=== PATIENT | female | born 1955 | race Caucasian/White ===

== ENCOUNTER 2017-06-27 10:35 | Emergency (ER) | payer SELFPAY ==
[~2017-06-27] VITALS: Ht 160 cm; Wt 82.0 kg
[~2017-06-27 10:35] MED LIST: 1-ME1LIQ PO; ALPR0.25 PO; AMLO10 PO; ATOR80TA41 PO; CARV12.5 PO; CLOP75 PO; ECOT81TA2 PO; LISI-363 PO; LISI20 PO; METH750T2 PO
[2017-06-27 10:37] VITALS: BP 179/93; PULSE 84; RESP 20; TEMP 97.8; O2SAT 98
[2017-06-27] MEDS ORDERED: FLUT1SPR5 EACH NARE (10:53)
[2017-06-27] MEDS ORDERED: AUGM875T3 PO (10:53)
--- NOTE | 2017-06-27 10:57 | PD ---
HPI Chief Complaint: ENT Complaint Time Seen by Provider: 10:53 Travel History International Travel<30 days: No Contact w/Intl Traveler<30days: No Traveled to known affect area: No History of Present Illness HPI This is a 61-year-old female who presents for evaluation of nasal congestion and sinus pressure. Symptoms started 1.5 weeks ago. She reports that she had some pressure and pain in her right ear yesterday as well but that has resolved. She has tried using [id number] cough and cold medications, nasal decongestants however her symptoms have persisted which prompted evaluation. Denies cough, shortness of breath, rash, recent travel, fevers or chills. She has no other complaints at this time. PFSH Past Medical History Hx Anticoagulant Therapy: Yes Arthritis: Yes (OSTEOMYLITIS) Blood Disorders: No Heart Rhythm Problems: No Cancer: No Cardiovascular Problems: No High Cholesterol: Yes Chest Pain: No Congestive Heart Failure: No Diabetes: No Diminished Hearing: No Endocrine: No Genitourinary: No Hypertension: Yes Immune Disorder: No Musculoskeletal: Yes (OSTEOMYELITIS A CHILD) Neurologic: No Psychiatric: No Respiratory: No Thyroid Disease: No ?: Not Menopausal: Yes Dilation and Curettage (D&C): Yes Past Surgical History Section: Yes (X 2) Gynecologic Surgery: Yes (C SECTION) Tonsillectomy: Yes (& ADENOIDS) Social History Alcohol Use: No Tobacco Use: No Substance Use: No Allergies-Medications (Allergen,Severity, Reaction): Coded Allergies: Sulfa (Sulfonamide Antibiotics) (Unverified Allergy, Severe, HIVES, ) levofloxacin (Unverified Allergy, Severe, ITCHING/RASH, 06/07/17) Reported Meds & Prescriptions Reported Meds & Active Scripts Active Flonase Nasal [place] (Fluticasone Nasal [place]) 50 Mcg/Act [place] 100 Mcg EACH NARE BID 10 Days Augmentin (Amoxicillin-Clavulanate) 875-125 Mg Tab 1 Tab PO BID 10 Days Plavix (Clopidogrel Bisulfate) 75 Mg Tab 75 Mg PO DAILY Lisinopril 20 mg (Lisinopril) 20 Mg Tab 2 Tab PO DAILY 1-Methyl 2-Pyrrolidinone (1-Methyl 2-Pyrrolidone (Bulk)) 10 Mg Tab 1 Tab PO DAILY Methocarbamol 750 Mg Tab 750 Mg PO QID Alprazolam 0.25 Mg Tab 0.25 Mg PO TID Ecotrin Low Strength (Aspirin) 81 Mg Tabec 81 Mg PO DAILY Norvasc (Amlodipine Besylate) 10 Mg Tab 10 Mg PO HS Prinivil 20 mg (Lisinopril) 20 Mg Tab 40 Mg PO DAILY Lipitor 80 Mg Tab (Atorvastatin) 80 Mg Tab 80 Mg PO HS Plavix (Clopidogrel Bisulfate) 75 Mg Tab 75 Mg PO DAILY Reported Coreg 12.5 mg (Carvedilol) 12.5 Mg Tab 1 Tab PO BID Review of Systems Except as stated in HPI: all other systems reviewed are Neg Physical Exam Narrative GENERAL: Well-developed well-nourished female in no acute distress SKIN: Warm and dry. HEAD: Atraumatic. Normocephalic. EYES: Pupils equal and round. No scleral icterus. No injection or drainage. ENT: No nasal bleeding or discharge. Mucous membranes pink and moist. No oral pharyngeal erythema or exudate. Tympanic membranes appear normal. NECK: Trachea midline. No JVD. No lymphadenopathy. CARDIOVASCULAR: Regular rate and rhythm. No murmur appreciated. RESPIRATORY: No accessory muscle use. Clear to auscultation. Breath sounds equal bilaterally. Data Data Last Documented VS Vital Signs Date Time Temp Pulse Resp B/P (MAP) Pulse Ox O2 Delivery O2 Flow Rate FiO2 06/27/17 10:37 97.8 84 20 179/93 (121) 98 Room Air [facility] Medical Decision Making Medical Screen Exam Complete: Yes Emergency Medical Condition: Yes Medical Record Reviewed: Yes Differential Diagnosis Sinusitis, rhinitis, pharyngitis, otitis media, bronchitis Narrative Course Physical examination and history are consistent with sinusitis. The patient is being discharged with Augmentin and Flonase. Diagnosis Primary Impression: Sinusitis Qualified Codes: J01.90 - Acute sinusitis, unspecified Departure Forms: Tests/Procedures, Work Release Enter return to work date: Jun 27, 2017 Additional Instructions: Medication as prescribed. Follow-up with primary care physician as needed. Return for any emergent medical conditions. Med/Other Pt SpecificInfo: Prescription(s) given Scripts Fluticasone Nasal [place] (Flonase Nasal [place]) 50 Mcg/Act [place] 100 MCG EACH NARE BID for Allergies for 10 Days, #1 BOTTLE 0 Refills Prov: Cindi Mata MD 06/27/17 Amoxicillin-Clavulanate (Augmentin) 875-125 Mg Tab 1 TAB PO BID for Infection for 10 Days, TAB 0 Refills Prov: Cindi Mata MD 06/27/17 Disposition: 01 DISCHARGE HOME Condition: Stable Moses Segal Jun 27, 2017 10:57
== END 2017-06-27 11:26 | disposition home or self-care (01) ==
LOC: NEPK 10:35
DX: J01.90 Acute sinusitis, unspecified (principal)
CPT/HCPCS: 99283

== ENCOUNTER 2017-10-20 09:30 | Emergency (ER) | payer SELFPAY ==
[~2017-10-20] VITALS: Ht 160 cm; Wt 76.0 kg
[~2017-10-20 09:30] MED LIST changes: +AUGM875T3 PO; +FLUT1SPR5 EACH NARE
[2017-10-20 09:32] VITALS: BP 167/84; PULSE 72; RESP 14; TEMP 97.9; O2SAT 97
--- NOTE | 2017-10-20 10:05 | PD ---
HPI Chief Complaint: ENT Complaint Time Seen by Provider: 09:44 Travel History International Travel<30 days: No Contact w/Intl Traveler<30days: No Traveled to known affect area: No History of Present Illness HPI 61 year old female presents to the emergency department for evaluation of sinus pressure, nasal congestion and sore throat x 2 weeks. Patient denies any fevers or chills. Patient states she the nasal congestion has been thick yellow phlegm. She states it feels like the nasal congestion is dripping down the posterior aspect of her throat irritating her throat. She has been using OTC multi-symptom cold medicine, but the symptoms are persistent. She states she had this a couple months ago and an antibiotic is the only thing that brought relief. Patient also states she recently started a new job and will be insured started the [employer] of the year. She is requesting her Lisinopril medication refill and is going to follow up with her new PCP next month. She denies any smoking, alcohol or drug use. PFSH Past Medical History Hx Anticoagulant Therapy: Yes Arthritis: Yes Blood Disorders: No Heart Rhythm Problems: No Cancer: No Cardiovascular Problems: No High Cholesterol: Yes Chest Pain: No Congestive Heart Failure: No Diabetes: No Diminished Hearing: No Endocrine: No Genitourinary: No Hypertension: Yes Immune Disorder: No Musculoskeletal: Yes (OSTEOMYELITIS A CHILD) Neurologic: No Psychiatric: No Respiratory: No Thyroid Disease: No Menopausal: Yes Dilation and Curettage (D&C): Yes Past Surgical History Section: Yes (X 2) Gynecologic Surgery: Yes (C SECTION) Tonsillectomy: Yes (& ADENOIDS) Social History Alcohol Use: No Tobacco Use: No Substance Use: No Allergies-Medications (Allergen,Severity, Reaction): Coded Allergies: Sulfa (Sulfonamide Antibiotics) (Unverified Allergy, Severe, HIVES, ) levofloxacin (Unverified Allergy, Severe, ITCHING/RASH, 06/07/17) Reported Meds & Prescriptions Reported Meds & Active Scripts Active Lisinopril 40 Mg Tab 40 Mg PO DAILY Augmentin (Amoxicillin-Clavulanate) 875-125 Mg Tab 1 Tab PO BID 10 Days Review of Systems Except as stated in HPI: all other systems reviewed are Neg Physical Exam Narrative GENERAL: Well-nourished, well-developed 61-year-old female patient in no acute distress. Nontoxic appearing. SKIN: Focused skin assessment warm/dry. HEAD: Normocephalic. Atraumatic. EYES: No scleral icterus. No injection or drainage. ENT: Mucosa pink and moist. No erythema or exudates. No uvular edema. No uvular , palatal, or tonsillar deviation. Oral pharyngeal airway patent. Nasal turbinates appear hypertrophic with small amount of purulent drainage noted. THROAT: No pharyngeal injection, exudates, or tonsillar hypertrophy. Airway is patent. NECK: Supple, trachea midline. No JVD or lymphadenopathy. CARDIOVASCULAR: Regular rate and rhythm without murmurs, gallops, or rubs. RESPIRATORY: Breath sounds equal bilaterally. Clear to auscultation. No accessory muscle use. No wheezing, rhonchi or crackles noted. GASTROINTESTINAL: Abdomen soft, non-tender, nondistended. Data Data Last Documented VS Vital Signs Date Time Temp Pulse Resp B/P (MAP) Pulse Ox O2 Delivery O2 Flow Rate FiO2 10/20/17 09:32 97.9 72 14 167/84 (111) 97 Orders Orders Ed Discharge Order (10/20/17 10:24) [facility] Medical Decision Making Medical Screen Exam Complete: Yes Emergency Medical Condition: Yes Differential Diagnosis Differential diagnoses include but are not limited to sinusitis, pharyngitis, viral URI Narrative Course Patient's physical exam is consistent with sinusitis. Due to the length of time her symptoms have been persistent she'll be treated with Augmentin. Patient requests lisinopril refill due at this time to the fact that she has insurance at the beginning of the year and will follow up with a primary care at that time. Lisinopril refill given. Patient will follow up primary care next month. Patient discharged home at this time. Diagnosis Primary Impression: Sinusitis Qualified Codes: J32.9 - Chronic sinusitis, unspecified Referrals: Primary Care Physician Patient Instructions: General Instructions, Sinusitis (ED) Additional Instructions: Please return to emergency department if your symptoms return or worsen. Follow up with your primary care provider. Take medications as prescribed. Med/Other Pt SpecificInfo: Prescription(s) given Scripts Lisinopril (Lisinopril) 40 Mg Tab 40 MG PO DAILY for Blood Pressure Management, #30 TAB 0 Refills Prov: Vanessa Islas 10/20/17 Amoxicillin-Clavulanate (Augmentin) 875-125 Mg Tab 1 TAB PO BID for Infection for 10 Days, #20 TAB 0 Refills Prov: Vanessa Islas 10/20/17 Disposition: 01 DISCHARGE HOME Condition: Stable Vanessa Islas Oct 20, 2017 10:05
[2017-10-20] MEDS ORDERED: AUGM875T3 PO (10:17)
[2017-10-20] MEDS ORDERED: LISI40TA PO (10:17)
== END 2017-10-20 19:36 | disposition home or self-care (01) ==
LOC: NEPD 09:30
DX: J32.9 Chronic sinusitis, unspecified (principal); I10 Essential (primary) hypertension
CPT/HCPCS: 99284

== ENCOUNTER 2017-11-11 23:23 | Emergency (ER) | payer SELFPAY ==
[~2017-11-11 23:23] MED LIST changes: -1-ME1LIQ PO; -ALPR0.25 PO; -AMLO10 PO; -ATOR80TA41 PO; -CARV12.5 PO; -CLOP75 PO; -ECOT81TA2 PO; -FLUT1SPR5 EACH NARE; -LISI-363 PO; -LISI20 PO; +LISI40TA PO; -METH750T2 PO
[2017-11-11 23:33] VITALS: BP_SYST 10; BP_SYST 154; BP_DIAS 88; PULSE 87; RESP 16; TEMP 97.6; O2SAT 97
[2017-11-11] MEDS ORDERED: SODIUM CHLORIDE 0.9% FLUSH 10 ML FLUSH IV FLUSH PRN (23:45)
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
[2017-11-12] MEDS ORDERED: SODIUM CHLOR 0.9% 1000 ML INJ 1,000 ML IV ONE (00:45)
[2017-11-12 00:46] LABS: AUTOMATED NEUTROPHIL # 2.5 TH/MM3 (1.8-7.7); BASOPHIL # 0.1 TH/MM3 (0-0.2); BASOPHIL % 1.3 % (0.0-2.0); EOSINOPHIL # 0.2 TH/MM3 (0-0.4); EOSINOPHIL % 3.9 % (0.0-4.0); HEMATOCRIT 42.8 % (35.0-46.0); HEMOGLOBIN 14.1 GM/DL (11.6-15.3); LYMPH % 41.2 % (9.0-44.0); LYMPHOCYTE # 2.2 TH/MM3 (1.0-4.8); MEAN CELL VOLUME 92.8 FL (80.0-100.0); MEAN CORPUSCULAR HEMOGLOBIN 30.6 PG (27.0-34.0); MEAN PLATELET VOLUME 8.1 FL (7.0-11.0); MONO % 6.3 % (0.0-8.0); MONOCYTE # 0.3 TH/MM3 (0-0.9); NEUT % 47.3 % (16.0-70.0); PLATELET COUNT 265 TH/MM3 (150-450); RED BLOOD COUNT 4.61 MIL/MM3 (4.00-5.30); RED CELL DISTRIBUTION WIDTH 13.2 % (11.6-17.2); WHITE BLOOD COUNT 5.4 TH/MM3 (4.0-11.0)
[2017-11-12 01:00] LABS: ALT (GPT) 33 U/L (10-53); PROTHROMBIN TIME - PATIENT 10.3 SEC (9.8-11.6)
[2017-11-12 01:01] LABS: AST (GOT) 50 U/L (15-37); BICARBONATE 21.1 MEQ/L (21.0-32.0); BLOOD UREA NITROGEN 11 MG/DL (7-18); CALCIUM 8.9 MG/DL (8.5-10.1); CHLORIDE 107 MEQ/L (98-107); CREATININE 0.82 MG/DL (0.50-1.00); GLOMERULAR FILTRATION RATE 71 ML/MIN (>89); GLUCOSE,RANDOM 100 MG/DL (74-106); SODIUM (NA) 138 MEQ/L (136-145)
[2017-11-12 01:14] LABS: ALKALINE PHOSPHATASE 75 U/L (45-117); TOTAL BILIRUBIN ADULT 0.4 MG/DL (0.2-1.0); TOTAL PROTEIN 8.1 GM/DL (6.4-8.2)
[2017-11-12 04:00] VITALS: BP 138/79; PULSE 76; RESP 18; O2SAT 96
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
--- NOTE | 2017-11-12 06:27 | PD ---
Physical Exam Date Seen by Provider: Nov 12, 2017 Time Seen by Provider: 06:25 Data Data Last Documented VS Vital Signs Date Time Temp Pulse Resp B/P (MAP) Pulse Ox O2 Delivery O2 Flow Rate FiO2 11/11/17 23:33 97.6 87 16 154/88 (110) 97 Orders Orders Complete Blood Count With Diff (11/11/17 23:42) Comprehensive Metabolic Panel (11/11/17 23:42) Prothrombin Time / Inr (Pt) (11/11/17 23:42) Act Partial Throm Time (Ptt) (11/11/17 23:42) Iv Access Insert/Monitor (11/11/17 23:42) Ecg Monitoring (11/11/17 23:42) Oximetry (11/11/17 23:42) Sodium Chloride 0.9% Flush (Ns Flush) (11/11/17 23:45) Alcohol (Ethanol) (11/11/17 23:42) Ct Brain W/O Iv Contrast(Rout) (11/11/17 ) Ct Cerv Spine W/O Contrast (11/11/17 ) Sodium Chlor 0.9% 1000 Ml Inj (Ns 1000 M (11/12/17 00:45) Spine, Cervical Fl/Ext Only (11/12/17 ) Ed Discharge Order (11/12/17 06:24) Labs Laboratory Tests Test 11/12/17 00:20 White Blood Count 5.4 TH/MM3 Red Blood Count 4.61 MIL/MM3 Hemoglobin 14.1 GM/DL Hematocrit 42.8 % Mean Corpuscular Volume 92.8 FL Mean Corpuscular Hemoglobin 30.6 PG Mean Corpuscular Hemoglobin Concent 33.0 % Red Cell Distribution Width 13.2 % Platelet Count 265 TH/MM3 Mean Platelet Volume 8.1 FL Neutrophils (%) (Auto) 47.3 % Lymphocytes (%) (Auto) 41.2 % Monocytes (%) (Auto) 6.3 % Eosinophils (%) (Auto) 3.9 % Basophils (%) (Auto) 1.3 % Neutrophils # (Auto) 2.5 TH/MM3 Lymphocytes # (Auto) 2.2 TH/MM3 Monocytes # (Auto) 0.3 TH/MM3 Eosinophils # (Auto) 0.2 TH/MM3 Basophils # (Auto) 0.1 TH/MM3 CBC Comment DIFF FINAL Differential Comment Prothrombin Time 10.3 SEC Prothromb Time International Ratio 1.0 RATIO Activated Partial Thromboplast Time 21.5 SEC Blood Urea Nitrogen 11 MG/DL Creatinine 0.82 MG/DL Random Glucose 100 MG/DL Total Protein 8.1 GM/DL Albumin 4.0 GM/DL Calcium Level 8.9 MG/DL Alkaline Phosphatase 75 U/L Aspartate Amino Transf (AST/SGOT) 50 U/L Alanine Aminotransferase (ALT/SGPT) 33 U/L Total Bilirubin 0.4 MG/DL Sodium Level 138 MEQ/L Potassium Level 4.7 MEQ/L Chloride Level 107 MEQ/L Carbon Dioxide Level 21.1 MEQ/L Anion Gap 10 MEQ/L Estimat Glomerular Filtration Rate 71 ML/MIN Ethyl Alcohol Level 303 MG/DL MDM Medical Record Reviewed: Yes Supervised Visit with AVEL: Yes Interpretation(s) Last 24 hours Impressions Cervical Spine X-Ray 11/12/17 0000 Signed Impressions: Service Date/Time: Sunday, November 12, 2017 04:31 - CONCLUSION: 1. Stable subtle anterolisthesis of C5 on C6. No evidence of motion segment abnormality to suggest ligament injury. Alo Ochoa MD Head CT 11/11/17 0000 Signed Impressions: Service Date/Time: Saturday, November 11, 2017 23:58 - CONCLUSION: 1. No acute intracranial abnormality. Alo Ochoa MD Cervical Spine CT 11/11/17 0000 Signed Impressions: Service Date/Time: Saturday, November 11, 2017 23:58 - CONCLUSION: 1. Mild grade one anterolisthesis of C5 on C6. Consider flexion-extension views if there is clinical concern regarding ligamentous instability. 2. No acute fracture. 3. Degenerative spondylosis of the lower cervical spine most prominently at C5-7 with multilevel facet arthropathy. Alo Ochoa MD Differential Diagnosis MDM: High Differential diagnoses: Fracture, sprain, strain, dislocation, contusion, neurovascular injury Narrative Course I was asked to follow-up with flexion-extension views of the patient's cervical spine prior to discharge. This has been performed. There is no evidence of instability. The patient will be consider medically stable at 8 AM and can be discharged safely. This is head contusion, cervical strain, fall Diagnosis Primary Impression: head contusion Additional Impressions: cervical strain fall Patient Instructions: General Instructions Additional Instruction: Rest. Increase fluids. Head precautions. Tylenol for pain. No alcohol. No driving under the influence of alcohol or drugs. Follow-up with your doctor on Tuesday. Return to the ER for any problems. Med/Other Pt SpecificInfo: No Change to Meds Disposition: 01 DISCHARGE HOME Condition: Stable Rao Ingram Nov 12, 2017 06:27
== END 2017-11-12 07:54 | disposition home or self-care (01) ==
LOC: NEPD 23:23
DX: S00.83XA Contusion of other part of head, initial encounter (principal); S16.1XXA Strain of muscle, fascia and tendon at neck level, initial encounter; F10.929 Alcohol use, unspecified with intoxication, unspecified; I10 Essential (primary) hypertension; E78.00 Pure hypercholesterolemia, unspecified; Z79.01 Long term (current) use of anticoagulants; Z79.899 Other long term (current) drug therapy; Z87.39 Personal history of other diseases of the musculoskeletal system and connective tissue; Y90.8 Blood alcohol level of 240 mg/100 ml or more; W01.0XXA Fall on same level from slipping, tripping and stumbling without subsequent striking against object, initial encounter
CPT/HCPCS: 70450; 72040; 72125; 80053; 80307; 85025; 85610; 85730; 96360; 96361; 99285; J7030

== ENCOUNTER 2017-12-06 17:44 | Emergency (ER) | payer SELFPAY ==
[~2017-12-06] VITALS: Ht 160 cm; Wt 72.5 kg
[2017-12-06 17:45] VITALS: BP 199/104; PULSE 77; RESP 16; TEMP 97.8; O2SAT 100
[2017-12-06] MEDS ORDERED: LISI-515 PO (18:36)
[2017-12-06 18:42] VITALS: BP 238/110
--- NOTE | 2017-12-06 18:42 | PD ---
HPI Chief Complaint: Back/ Neck Pain or Injury Time Seen by Provider: 18:35 Travel History International Travel<30 days: No Contact w/Intl Traveler<30days: No Traveled to known affect area: No History of Present Illness HPI 62-year-old female presents for evaluation of lower back pain. She reports that 4 days ago she tripped at work and twisted her lower back. She now has lower back pain which is aching and constant worse with movement. Denies abdominal pain, chest pain or shortness of breath, incontinence, pain or numbness or tingling in the legs. She is noted to be markedly hypertensive. She reports that she went for lisinopril several days ago and does not have a primary care physician. She has no other complaints at this time. PFSH Past Medical History Hx Anticoagulant Therapy: Yes Arthritis: Yes Blood Disorders: No Heart Rhythm Problems: No Cancer: No Cardiovascular Problems: Yes (HTN) High Cholesterol: Yes Chest Pain: No Congestive Heart Failure: No Diabetes: No Diminished Hearing: No Endocrine: No Genitourinary: No Hypertension: Yes Immune Disorder: No Musculoskeletal: Yes (OSTEOMYELITIS A CHILD) Neurologic: No Psychiatric: No Respiratory: No Thyroid Disease: No Menopausal: Yes Dilation and Curettage (D&C): Yes Past Surgical History Section: Yes (X 2) Gynecologic Surgery: Yes (C SECTION) Tonsillectomy: Yes (& ADENOIDS) Social History Alcohol Use: Yes (RARE ) Tobacco Use: No Substance Use: No Allergies-Medications (Allergen,Severity, Reaction): Coded Allergies: Sulfa (Sulfonamide Antibiotics) (Unverified Allergy, Severe, HIVES, ) levofloxacin (Unverified Allergy, Severe, ITCHING/RASH, 06/07/17) Reported Meds & Prescriptions Reported Meds & Active Scripts Active Baclofen 10 Mg Tab 10 Mg PO TID Lidocaine Patch 12 HR (Lidocaine) 5 % Patch 1 Patch TOPICAL DAILY PRN Remove patch after 12 hours Lisinopril 20 Mg Tab 20 Mg PO DAILY Lisinopril 40 Mg Tab 40 Mg PO DAILY Augmentin (Amoxicillin-Clavulanate) 875-125 Mg Tab 1 Tab PO BID 10 Days Review of Systems Except as stated in HPI: all other systems reviewed are Neg Physical Exam Narrative GENERAL: Well-developed well-nourished female in no acute distress SKIN: Warm and dry. HEAD: Atraumatic. Normocephalic. EYES: Pupils equal and round. No scleral icterus. No injection or drainage. ENT: No nasal bleeding or discharge. Mucous membranes pink and moist. NECK: Trachea midline. No JVD. CARDIOVASCULAR: Regular rate and rhythm. No murmur appreciated. RESPIRATORY: No accessory muscle use. Clear to auscultation. Breath sounds equal bilaterally. GASTROINTESTINAL: Abdomen soft, non-tender, nondistended. Hepatic and splenic margins not palpable. No palpable pulsatile masses. MUSCULOSKELETAL: No obvious deformities. No clubbing. No cyanosis. No edema. 5 out of 5 muscle strength in lower extremities. There is some tenderness to palpation to the lumbar paravertebral musculature. The patient has a normal gait. NEUROLOGICAL: Awake and alert. No obvious cranial nerve deficits. Motor grossly within normal limits. Normal speech. Data Data Last Documented VS Vital Signs Date Time Temp Pulse Resp B/P (MAP) Pulse Ox O2 Delivery O2 Flow Rate FiO2 12/06/17 19:30 178/92 (120) 12/06/17 17:45 97.8 77 16 100 Room Air Orders Orders Spine, Lumbar - Ltd (Ap & Lat) (12/06/17 ) Lisinopril (Prinivil) (12/06/17 18:45) Clonidine (Catapres) (12/06/17 18:45) Acetaminophen (Tylenol) (12/06/17 18:45) Ed Discharge Order (12/06/17 19:31) [facility] Medical Decision Making Medical Screen Exam Complete: Yes Emergency Medical Condition: Yes Medical Record Reviewed: Yes Differential Diagnosis Lumbar strain, compression fracture, contusion Narrative Course X-ray imaging reveals CONCLUSION: 1. Bilateral spondylolysis at the lumbosacral junction with grade 1 anterolisthesis. No acute fracture. Mild degenerative disc disease and minimal levoscoliosis. The patient was given a dose of lisinopril and clonidine and her blood pressure appropriately improved. She will be given a short refill of her lisinopril but she understands that it is very important that she monitor her blood pressure in a regular basis and follow up with a primary care physician for continuing management of this chronic medical problem. She is stable for discharge. Diagnosis Primary Impression: Lumbar strain Additional Impression: Medication refill Referrals: [facility] Additional Instructions: Medication as needed. Do not drive or drink alcohol when taking baclofen. As discussed, monitor blood pressure regular basis and keep a journal of these readings. Follow-up with a primary care physician and return for any emergent medical conditions. Med/Other Pt SpecificInfo: Prescription(s) given Scripts Baclofen (Baclofen) 10 Mg Tab 10 MG PO TID for Muscle Spasm, #15 TAB 0 Refills Prov: Slava Richard MD 12/06/17 Lidocaine Patch 12 HR (Lidocaine Patch 12 HR) 5 % Patch 1 PATCH TOPICAL DAILY Y for PAIN, #1 BOX 0 Refills Remove patch after 12 hours Prov: Slava Richard MD 12/06/17 Lisinopril (Lisinopril) 20 Mg Tab 20 MG PO DAILY, #30 TAB 0 Refills Prov: Slava Richard MD 12/06/17 Disposition: 01 DISCHARGE HOME Condition: Stable Moses Segal Dec 06, 2017 18:41
[2017-12-06] MEDS ORDERED: LISINOPRIL 20 MG TAB PO ONE (18:45)
[2017-12-06] MEDS ORDERED: ACETAMINOPHEN 325 MG TAB PO ONE (18:45)
[2017-12-06] MEDS ORDERED: cloNIDine HCL 0.2 MG TAB PO ONE (18:45)
--- NOTE | 2017-12-06 19:15 | RADRPT ---
EXAM DATE/TIME: 12/06/2017 18:51 [facility] COMPARISON: No previous studies available for comparison. INDICATIONS : Lower back pain after fall a few days ago. MEDICAL HISTORY : Hypercholesterolemia. Hypertension. SURGICAL HISTORY : Tonsillectomy. section. Adenoidectomy. ENCOUNTER: Initial ACUITY: 4 - 6 days PAIN SCORE: 10/10 LOCATION: Bilateral lower back. FINDINGS: Two view examination was performed. Mild levoscoliosis. Grade 1 anterolisthesis of L5 on S1 with bila teral pars intra-articularis defects. CONCLUSION: 1. Bilateral spondylolysis at the lumbosacral junction with grade 1 anterolisthesis. No acute fractur e. Mild degenerative disc disease and minimal levoscoliosis. Rao Layton MD on December 06, 2017 at 19:11 Board Certified Radiologist. This report was verified electronically.
[2017-12-06 19:30] VITALS: BP 178/92
[2017-12-06] MEDS ORDERED: BACL10TA PO (19:31)
[2017-12-06] MEDS ORDERED: LIDO1PAD52 TOPICAL (19:31)
== END 2017-12-06 19:55 | disposition home or self-care (01) ==
LOC: NEPK 17:44
DX: S39.012A Strain of muscle, fascia and tendon of lower back, initial encounter (principal); I10 Essential (primary) hypertension; E78.00 Pure hypercholesterolemia, unspecified; W18.40XA Slipping, tripping and stumbling without falling, unspecified, initial encounter; Y99.0 Civilian activity done for income or pay; Z76.0 Encounter for issue of repeat prescription; Z88.2 Allergy status to sulfonamides; Z88.8 Allergy status to other drugs, medicaments and biological substances; Z79.899 Other long term (current) drug therapy
CPT/HCPCS: 72100; 99283